=== PATIENT | male | born 1945 | race Two or more races ===

== ENCOUNTER → 2020-12-21 | Outpatient (CLI) | payer MEDICARE, OTHER ==
[~2020-12-21] MED LIST: AMLODIPINE BESYL5 MG PO; LOSARTAN POTAS100 MG PO; METFORMIN HCL500 MG PO
== END ==
LOC: RAD 11:29
DX: M25.552 Pain in left hip (principal); M79.662 Pain in left lower leg
CPT/HCPCS: 72110; 93970

== ENCOUNTER → 2021-01-10 | Outpatient (CLI) | payer MEDICARE, OTHER | LOC: RAD 15:42 | DX: M54.40 Lumbago with sciatica, unspecified side (principal); M25.572 Pain in left ankle and joints of left foot; I70.202 Unspecified atherosclerosis of native arteries of extremities, left leg | CPT/HCPCS: 93926 ==

== ENCOUNTER → 2021-01-23 | Outpatient (CLI) | payer MEDICARE, OTHER | LOC: MRI 07:10 | DX: M54.42 Lumbago with sciatica, left side (principal); M25.572 Pain in left ankle and joints of left foot | CPT/HCPCS: 72148 ==

== ENCOUNTER → 2023-11-23 | Outpatient (REF) | payer MEDICARE, OTHER ==
[~2023-11-23] MED LIST changes: +CARVEDILOL3.125 MG PO; +FLOMAX0.4 MG PO; +METHENAMINE HIPP1 GM PO; +MULTI-VITAMIN1 EACH PO
== END ==
LOC: RAD 10:27
PROVIDERS: ATTEND Internal Medicine
DX: R05.3 Chronic cough (principal)
CPT/HCPCS: 71046; 87070; 87205

== ENCOUNTER → 2024-02-11 | Outpatient (REF) | payer MEDICARE ==
[2024-02-11 10:00] LABS: BASOPHILS % 0.5 % (0.0-1.0); EOSINOPHILS # (AUTO) 0.2 (0.0-0.4); EOSINOPHILS % 4.9 % (0.0-6.0); HEMATOCRIT 43.4 % (38.2-49.6); HEMOGLOBIN 14.8 g/dL (14.0-18.0); LYMPHOCYTES # (AUTO) 1.7 (1.0-3.2); LYMPHOCYTES % 43.5 % (18.0-39.1); MEAN CORPUSCULAR HGB CONC 34.1 g/dL (31-35); MONOCYTES # (AUTO) 0.3 (0.2-0.8); MONOCYTES % 8.8 % (4.4-11.3); NEUTROPHILS # (AUTO) 1.6 (2.1-6.9); PLATELET COUNT 184 x10e3/uL (140-360); RED BLOOD COUNT 4.77 x10e6/uL (4.3-5.7); RED CELL DISTRIBUTION WIDTH 12.7 % (11.7-14.4); WHITE BLOOD COUNT 3.86 x10e3/uL (4.8-10.8)
[2024-02-11 10:22] LABS: ALBUMIN 4.1 g/dL (3.5-5.0); ALBUMIN/GLOBULIN RATIO 1.4 (0.8-2.0); ANION GAP 15.6 mmol/L (8-16); BILIRUBIN,TOTAL 0.4 mg/dL (0.2-1.2); CALCIUM 9.3 mg/dL (8.4-10.2); CHOL/HDL RATIO 3.9 (3.9-4.7); CREATININE, SERUM 1.03 mg/dL (0.72-1.25); POTASSIUM 4.6 mmol/L (3.5-5.1)
== END ==
LOC: LAB 09:46
PROVIDERS: ATTEND Internal Medicine
DX: Z00.00 Encounter for general adult medical examination without abnormal findings (principal); E11.9 Type 2 diabetes mellitus without complications; N40.0 Benign prostatic hyperplasia without lower urinary tract symptoms; E78.5 Hyperlipidemia, unspecified
CPT/HCPCS: 36415; 80053; 80061; 83036; 84152; 85025

== ENCOUNTER → 2024-03-30 | Outpatient (REF) | payer MEDICARE, OTHER | LOC: CT 13:47 | PROVIDERS: ATTEND Internal Medicine | DX: R05.3 Chronic cough (principal) | CPT/HCPCS: 71250 ==